=== PATIENT | male | born 1985 | race Caucasian/White ===

== ENCOUNTER 2024-11-30 09:21 | Outpatient (AMB) | payer OTHER, SELFPAY ==
--- NOTE | 2024-11-30 09:31 | A.OFFPC_ITS ---
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 Regular visit Intake Note: patient here for new patient visit [employer] Laboratory Director Required: No Allergies No Known Allergies Allergy (Verified 11/30/24 10:17) Medication List - Last Reconciled 11/30/24 by Jairon Díaz CNP No Known Home Meds Tobacco use date assessed: 11/30/24 Dental Screening Dental Screen Date: 11/30/24 Did you have a dental visit in the last 12 months?: Yes Did you have a dental problem in the last 6 months where you did not have access to dental care?: No Was dental information given to patient?: Patient has dentist HPI HPI Comments History of Present Illness Details 31-year-old male presents to establish c are. Prior PCP? - [facility] Last office visit/CPE/labs - 5-7 years ago Acute issue(s) - Persistent nasal congestion with produ ctive green and black phlegm for the past 2 years. Denies constitutional symptoms. Flonase was effective but he developed adverse reaction of nausea Past Medical History - Depression: stopped taking psychotropi c medications at 19 years old - Left inguinal hernia - Pilonidal cyst Surgical History - Tooth extraction - Left inguinal hernia repair - Benign cyst removal from left christian a nd right forearm Family History - MGF: Diabetes, dementia - MGM: Alcohol abuse Social History - Smokes 3-4 cigarettes daily/1 pack wee kljael, have been smoking for 25 years; 0.5 ppd maximum. Does not vape. Drinks 1-2 small glass whiskey on weekends. Smokes less than a gram of cannabis daily - Has been making healthy dietary choice s. Exercises routinely. Generally sleep well Health maintenance - Last eye exam was several years ago. Referred to Ophthalmology for routine eye exam - Last dental visit was was in 10/2024 - Last tetanus vaccine was more than 10 years ago; received Tdap vaccine today - Has not been vaccinated for the flu ; declines vaccination [facility] Medical History (Updated 11/30/24 @ 10:47 by Mohamed Bre, NUCLEAR POWER REACTOR OPERATOR) Hernia of testicle Depression Surgical History (Updated 11/30/24 @ 09:55 by Vi Castrejon) History of tooth extraction History of removal of cyst Family History (Updated 11/30/24 @ 09:46 by Vi Castrejon) Maternal Grandfather Diabetes Brother Testicular cancer Maternal Grandmother Alcohol abuse FH: mental illness Maternal Uncle Alcohol abuse Social History (Updated 11/30/24 @ 09:35 by Vi Castrejon) Housing: Apartment Patient Tobacco Use Status: Current everyday Tobacco user Cigarette Packs Per Day: 0 Cigarettes Per Day: 4 e-Cigarette/Vaping Use: Never Used Second Hand Smoke Exposure: No Substance Use Type: Marijuana service: No Current occupational status: employed 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 1. Little interest or pleasure in doing things: not at all 2. Feeling down, depressed, or hopeless: not at all 3. Trouble falling or staying asleep, or sleeping too much: several days 4. Feeling tired or having little energy: several days 5. Poor appetite or overeating: not at all 6. Feeling bad about yourself - or that you are a failure or have let yourself or your family down: not at all 7. Trouble concentrating on things, such as reading the newspaper or watching television: not at all 8. Moving or speaking so slowly that other people could have noticed. Or the opposite - being so fidgety or restless that you have been moving around a lot more than usual: not at all 9. Thoughts that you would be better off or of hurting yourself in some way: not at all Total score: 2 Depression Screening Interpretation: Negative Depression Screening Done: Yes 64515 - PHQ-9 Billing: Yes Source: Developed by Drs. Fernando David, Lisandra Bejarano, Marlon Foster and colleagues, with an educational pravin from [employer]. Thrive Questionnaire Date Thrive assessed: 11/30/24 I am a: Patient What is your living situation today?: I have a steady place to live Within the past 12 months, did the food you bought not last and you didn't have the money to get more?: Never true Within the past 12 months, did you worry whether your food would run out before you got money to buy more?: Never true Do you have trouble paying for medicines?: No Do you have trouble getting transportation to medical appointments?: No Do you have trouble paying your heating and electricity bill?: No Do you have trouble taking care of your child, family member or friend?: No Do you have trouble with day-to-day activities such as bathing, preparing meals, shopping, managing finances, etc.?: No Are you currently unemployed and looking for a job?: No Are you interested in more education?: No Please select the resources that you would like help with: None Currently or been in a relationship where the following occur: No concerns reported THRIVE Score: 0 AUDIT C Alcohol Use Questionnaire (AUDIT-C) 1. How often do you have a drink containing alcohol?: 2-4 times a month 2. How many drinks containing alcohol do you have on a typical day when you are drinking?: 1 or 2 3. How often do you have six or more drinks on one occasion?: Never Total Score: 2 Score Reviewed/Action Taken: Yes JOSE DANIEL-7 AMB Questionnaire JOSE DANIEL-7 Date JOSE DANIEL - 7 assessed: 11/30/24 Feeling nervous, anxious, or on edge: 1 = Several days Not being able to stop or control worryin = Several days Worrying too much about different things: 2 = More than half the days Trouble relaxin = Not at all Being so restless that it is hard to sit still: 1 = Several days Becoming easily annoyed or irritable: 2 = More than half the days Feeling afraid as if something awful might happen: 0 = Not at all Total JOSE DANIEL-7 score (0-4 normal; 5-9 mild; 10-14 moderate; 15-21 severe): 7 Source: Developed by Drs. Fernando David, Lisandra Bejarano, Marlon Foster and colleagues, with an educational pravin from [employer]. JOSE DANIEL-7 Assessment Billing JOSE DANIEL-7 Assessment Tool: JOSE DANIEL-7 Assessment 94420 Review of Systems Const Details: Denies chills, Denies fatigue, Denies fever(s), Denies headache(s) and Denies weakness HEENT Denies change in vision, Denies dizziness, Denies headache(s), Denies hearing loss, Denies nasal congestion, Denies sinus pain, Denies sinus pressure and Denies sore throat Card Denies chest pain, Denies lightheadedness, Denies dyspnea and Denies other (palpitations) Resp Reports cough, Denies dyspnea and Denies wheezing GI Denies abdominal pain, Denies melena, Denies hematochezia, Denies change in bowel habits, Denies dyspepsia and Denies nausea Denies hematuria and Denies dysuria Musc Denies abnormal gait, Denies myalgias, Denies arthralgias, Denies numbness and Denies tingling Skin/Breast Denies rash, Denies unusual bruising and Denies wounds Neuro Denies abnormal gait, Denies dizziness, Denies headache(s), Denies memory loss, Denies numbness, Denies Sensory deficit (Neuro), Denies tingling and Denies weakness Psych Denies anxiety, Denies depression and Denies memory loss Endo Denies cold intolerance, Denies fatigue, Denies heat intolerance, Denies polydipsia and Denies polyuria Ruperto/Lymph Denies easy bleeding and Denies easy bruising Aller/Immun Denies wheezing Physical exam (Primary Care) Vital Signs: Last Vital Signs Temp 97.6 F 11/30/24 09:46 Pulse 87 11/30/24 09:46 Resp 16 11/30/24 09:46 BP 115/61 11/30/24 09:46 Pulse Ox 99 11/30/24 09:46 Oxygen Delivery Method Room Air 11/30/24 09:46 BMI result Body Mass Index 24.7 Tobacco/Smoking Status: Tobacco use Status Tobacco use date assessed 11/30/24 11/30/24 09:46 Patient Tobacco Use Status Current everyday Tobacco 11/30/24 09:46 e-Cigarette/Vaping Use Never Used 11/30/24 09:46 PHQ-9: PHQ-9 Score PHQ-9: Total score 2 11/30/24 10:48 Depression Screening Interpretation: Negative Thrive Assessment: Date of Thrive Assessment Date Thrive assessed 11/30/24 11/30/24 09:35 Currently or been in a relationship where the following occur: No concerns reported Const Other: General: no acute distress, well developed, alert and awake Nutritional Appearance: well nourished Orientation/consciousness: patient oriented x3 HENMT Head: Yes normocephalic and Yes atraumatic Ears: hearing grossly normal bilaterally and TM's normal bilaterally General nose exam: Normal external nose present and Normal nares present Mouth: Normal oral and palatal mucosa present and moist mucous membranes Teeth and gingiva: dentition normal Throat: Yes oropharynx normal Eyes Pupils: Equal, round and reactive pupils present and Pupil accommodation reflex normal EOM: EOMs intact bilaterally Neck Neck: Yes normal visual inspection, Yes no lymphadenopathy and Yes trachea midline Thyroid: Thyroid normal Carotids: no bruits Lymphatic: no lymphadenopathy noted Chest Chest palpation & inspection: normal inspection of the chest Resp Effort & Inspection: normal respiratory effort Auscultation: clear to auscultation bilaterally Cardio Rate: regular rate Rhythm: regular rhythm Heart sounds: S1 normal heart sound present, S2 normal heart sound present, no gallops, no murmurs and no rubs Bruits: no abdominal aortic bruits and no carotid bruits GI Palpation (GI): No Abdominal aortic bruit present, Soft to palpation, nontender, No hepatosplenomegaly present and No Rebound tenderness present Auscultation: normal bowel sounds General: Yes no CVA tenderness Back/Spine/Pelvis Back: no CVA tenderness Cervical Spine: cervical ROM normal and No Cervical spine tenderness Thoracic/Lumbar Spine: thoraco-lumbar ROM normal, No pain with thoraco-lumbar ROM, No thoracic spinal tenderness and No lumbar spinal tenderness Skin General: warm and dry. Normal skin color. Normal skin turgor Lesions: no lesions Rashes: no rashes Trauma: no lacerations or abrasions Wounds: no wounds Nails: normal Neuro General: patient oriented x3, gait normal and CN's II-XI intact bilaterally Cranial nerves: Yes Equal, round and reactive pupils present Cognition (Neuro): normal cognition Gait exam (Neuro): Normal gait present Motor exam (neuro): 5/5 motor strength present throughout Sensory Exam: No Sensory deficit (Neuro) Deep tendon reflexes (DTR's): Right patellar reflex intensity grade: 2+ and Left patellar reflex intensity grade: 2+ Extrem General: Yes normal to inspection, No edema and No calf tenderness Psych Appearance: grossly normal Affect: normal affect Attitude: cooperative Thought process: Normal thought process present Immunizations Boostrix Tdap 2.5 Lf unit-8 mcg-5 Lf/0.5 mL intramuscular syringe Performing Provider: Jairon Díaz CNP Performing Location: [facility] [place] [facility] Administered by: Nathaniel Morrow RN on 11/30/24 11:02 Dose Route Admin Location Dispensed Lot Number Expiration Date [facility] Placement Interviewer 0.5 mL IM Left Deltoid 0.5 mL [id number] 01/21/27 [id number] [employer] VIS Given Date VIS Provided VIS Publication Date 11/30/24 Single Vaccine 21 Eligibility Eligibility Date Funding Source Not [facility] Eligible 11/30/24 Private Coding Level of Care Code New Pt Level 3 (80218) New Pt Prev Care 18-39yr(34578 Diagnoses Normal physical examination, routine Z00.00 Eye exam, routine Z01.00 Allergies T78.40XA Smoking 1/2 pack a day or less F17.210 Depression F32.A Laboratory tests ordered as part of a complete physical exam (CPE) Z00.00 Additional Codes JOSE DANIEL-7 Assessment Billing - JOSE DANIEL-7 Assessment Tool: JOSE DANIEL-7 Assessment 10479 ([id number]) PHQ-9 - 85323 - PHQ-9 Billing: Yes ([id number]) Assessment & Plan Assessment & Plan (1) Normal physical examination, routine: Code(s): Z00.00 - Encounter for general adult medical examination without abnormal findings Category: Medical Plan: No significant functional limitation noted. Advised to perform lab work and follow-up for telehealth visit in 2-3 weeks for labs review. All return sooner with symptoms or concerns. Verbalized understanding and agreed with treatment plan. (2) Eye exam, routine: Code(s): Z01.00 - Encounter for examination of eyes and vision without abnormal findings Category: Medical Plan: Last eye exam was several years ago. Referred to Ophthalmology for routine eye exam. (3) Allergies: Code(s): T78.40XA - Allergy, unspecified, initial encounter Category: Medical Plan: Persistent nasal congestion with productive green and black phlegm for the past 2 years. No constitutional symptoms. Flonase was effective but he developed adverse reaction of nausea. May use nasal saline spray as needed. May take an antihistamine such as Claritin or Zyrtec once daily. Smoking cessation encouraged. Follow-up with worsening or new symptoms. Verbalized understanding and agreed with treatment plan. (4) Smoking 1/2 pack a day or less: Code(s): F17.210 - Nicotine dependence, cigarettes, uncomplicated Category: Social Hx Plan: He smokes 3-4 cigarettes daily/1 pack weekly, have been smoking for 25 years; 0.5 ppd maximum. Instructed on the health risks and complications of smoking and encouraged smoking cessation. Declines medication treatment for smoking cessation at this time and notes that he will stop smoking without medication. Follow-up as needed. Verbalized understanding and agreed with treatment plan. (5) Depression: Code(s): F32.A - Depression, unspecified Category: Medical Plan: He notes that his symptoms have been well-controlled since he was 19 years old and therefore has not taking psychotropic medications since. Routine exercise encouraged. Follow-up with symptoms or concerns. Verbalized understanding and agreed with the plan. (6) Laboratory tests ordered as part of a complete physical exam (CPE): Code(s): Z00.00 - Encounter for general adult medical examination without abnormal findi ngs Category: Medical Plan: Fasting labs ordered as part of a complete physical exam. Advised to fast for at least 10 hours before getting labs drawn. May drink water Verbalized understanding and agreed with treatment plan. Orders: Orders Comprehensive [place]. Panel Fast Today Z00.00 - Encounter for general adult medical examination without abnormal findings UA CC w/rflx Micro + Cult Today Z00.00 - Encounter for general adult medical examination without abnormal findings Vitamin D 25-OH Total Today Z00.00 - Encounter for general adult medical examination without abnormal findings TDaP Immunization Today Z23 - Encounter for immunization Complete Blood Count Auto Diff Today Z00.00 - Encounter for general adult medical examination without abnormal findings Lipid Panel Today Z00.00 - Encounter for general adult medical examination without abnormal findings Microalbumin, Random (w Creat) Today Z00.00 - Encounter for general adult medical examination without abnormal findings TSH reflex Free T4 Today Z00.00 - Encounter for general adult medical examination without abnormal findings
[2024-11-30 09:46] VITALS: BP 115/61; PULSE 87; RESP 16; TEMP 36.4; O2SAT 99; BMI 24.7
--- OUTSIDE RECORDS SUMMARY | 2024-11-30 10:33 | XMS_ITS ---
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 MEDICATIONS Medication SIG (Take, Route, Frequency, Duration) Notes Start Date End Date Status Fluticasone Propionate 93 MCG/ACT 1 spray in each nostril Nasally Twice a day for 30 days 12/01/2023 Active Multi Vitamin - 1 tablet Orally Once a day Active Vitamin B Complex - as directed Orally Active Flax Seed Oil Active Advil 200 MG 1 tablet with food o r milk as needed Orally Three times a day Active Turmeric Active SOCIAL HISTORY Tobacco Use: Social History Observation Description Date Details (start date - stop date) Current Smoker NA - NA Sex Assigned At : Social History Observation Description Sex Assigned At Unknown Tobacco Use/Smoking Question Answer Notes Tobacco use: current smoker How often do you smoke cigarettes? every day Are you interested in quitting? Not ready to matt t Section Notes: Living in [place], [place] wi th his girlfriend Chapis and a cat. 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[employer]) PROBLEMS Problem Type ICD Code Onset Dates Problem Status W/U Status Risk SNOMED Code Notes Problem Pilonidal cyst (L05.91) Active confirmed Pilonidal cyst (47329304) VITAL SIGNS Blood pressure systolic 118 mm Hg 12/01/19 24 Blood pressure diastolic 72 mm Hg 024 Heart Rate 99 /min 12/01/2023 Height 67 in 12/01/2023 Weight 159.6 lbs 12/01/2023 BMI 24.99 kg/m2 12/01/2023 Oximetry 97 % 12/01/2023 Height-cm 170.18 cm 12/01/2023 Weight-kg 72.39 kg 12/01/2023 Encounters Encounter Location Date Provider Diagnosis [address] [place] [id number] 12/01/2023 SANIYA GARCIA Prediabetes R73.03 ; Pilonidal cyst L05.91 and Seasonal allergies J30.2 ASSESSMENTS Encounter Date Diagnosis Assessment Notes Treatment Notes Treatment Clinical Notes Section Notes 12/01/2023 Prediabetes (ICD-10 - R73.03) Pt admits to high sugar HS diet/snacking along with bread and pasta Discussed low carb/complex carb diet maintain hydration and limit ibuprofen as creat 0.9 Will continue to monitor 12/01/2023 Pilonidal cyst (ICD-10 - L05.91) Currently no infection If recurrent may need to refer back to surgeon as has firm, scar tissue gluteal cleft and upper buttocks. continue with cleaning well with antibacterial soaps, warm soaks Also suggested low sugar Metamucil daily to make stools less loose 12/01/2023 Seasonal allergies (ICD-10 - J30.2) Will trial flonase as feels mostly nasal congestion is his discomfort Neti pot/nasal rinses Continue to monitor 12/01/2023 Other Total time spen t with patient 32 minutes which includes face to face visit, education and coordination of care. PLAN OF TREATMENT Medication Medication Name Sig Start Date Stop Date Notes Montelukast Sodium 10 MG 1 tablet Orally Once a day 2023 Fluticasone Propionate 93 MCG/ACT 1 spray in each nostril Nasally Twice a day for 30 days 12/01/2023 Senna 8.6 MG 2 tablets at bedtime as needed Orally Once a day Treatment Notes Assessment Notes Prediabetes Pt admits to high sugar HS diet/snacking along with bread and pasta Discussed low carb/complex carb diet maintain hydration and limit ibuprofen as creat 0.9 Will continue to monitor Pilonidal cyst Currently no infection If recurrent may need to refer back to surgeon as has firm, scar tissue gluteal cleft and upper buttocks. continue with cleaning well with antibacterial soaps, warm soaks Also suggested low sugar Metamucil daily to make stools less loose Seasonal allergies Will trial flonase as feels mostly nasal congestion is his discomfort Neti pot/nasal rinses Continue to monitor Other Total time spent wit h patient 32 minutes which includes face to face visit, education and coordination of care. 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 Providers/Specialists: Dentist: Dr. Britton. ?Visit info:? Patient presents in the office today for a new patient lab review. Patient did not start taking the Montelukast due to reading the paperwork that came with it. A little concerned about the side effects. Patient did take the Senna, however, made it so the patient was going 4-5 times a day. Runny and messy stool. Believes he has another pilonidal cyst. Popped over the weekend. ?-Concerned over re-current pilonidal cysts and loose BMs ?-Recent one popped after moist heat, soaks; no longer draining purulent discharge; no longer really painful. * ROS:?all systems reviewed and are non-contributory unless specified in the HPI. * Medical History:?? * Surgical History:??Cyst Kulwinder swati from [place], arm, lower back - benign 2007/2009/2013Hernia Surgery 2007[place] Teeth Removal 2011 * Hospitalization/Major Diagno stic Procedure:?? * Family History:??Father: mervin nuñez, No health concerns.??Mother: alive, No health concerns.??Paternal Grandfather: alive, Unknown.??Paternal Grandmother: , Unknown.??Maternal Grandfather: alive, Unknown.??Maternal Grandmother: 74 yrs, Diabetes.??Brother: alive, alcoholism, colon polyp.??Sister: alive, No health concerns.??Daughter: No health concerns.??Brother #2: alive, No health concerns.?? * Social History:?Tobacco Use:??Tobacco Use/Smoking??Tobacco use:??current smoker,??How often do you smoke cigarettes???every day,??Are you interested in quitting???Not ready to quit.?Drugs/Alcohol:??Do you smoke marijuana?: Admits, smokes, daily. Do you drink alcohol?: Yes, rarely, beer, liquor. ?Living in [place], [place] with his girlfriend Chapis and a cat. 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 * Medications:??TakingAdvil 20 0 MG Tablet 1 tablet with food or milk as needed Orally Three times a day Flax Seed Oil Turmeric Vitamin B Complex - Tablet as directed Orally Multi Vitamin - Tablet 1 tablet Orally Once a day Taking Advil 200 MG Tablet 1 tablet with food or milk as needed Orally Three times a day Taking Flax Seed Oil Taking Turmeric Taking Vitamin B Complex - Tablet as directed Orally Taking Multi Vitamin - Tablet 1 tablet Orally Once a day Not-TakingSenna 8.6 MG Tablet 2 tablets at bedtime as needed Orally Once a day Montelukast Sodium 10 MG Tablet 1 tablet Orally Once a day take at bedtimeMedication List reviewed and reconciled with the patientNot-Taking Senna 8.6 MG Tablet 2 tablets at bedtime as needed Orally Once a day Not-Taking Montelukast Sodium 10 MG Tablet 1 tablet Orally Once a day take at bedtimeMedication List reviewed and reconciled with the patient * Allergies:??Seasonal: Cold l tatiana symptoms - Allergy Objective: * Vitals:??BP:118/72mm Hg, HR: 99/min, Oxygen sat %:97%, Wt:159.6lbs, Wt-k.39 kg, Ht: 67 in, Ht-cm: 170.18 cm, BMI:24.99Index, Body Surface Area: 1.85. * ?Past Orders: ?Lab:1,25OH VITAMIN D ( Order Date - 10/28/2023) (Collection Date & Time - 11/07/2023 10:48 AM) ? Value Reference Range ?1,25OH VITAMIN D 52.2 - ?Lab:ANTITHYROGLOBULIN AB (Order Date - 10/28/2023) (Collection Date & Time - 11/07/2023 10:48 AM) ? Value Reference Range ?ANTITHYROGLOBULIN AB 12.6 (<115) - IU/ML ?Lab:APOLIPOPROTEIN A1 (Order Date - 10/28/2023) (Collection Date & Time - 11/07/2023 10:48 AM) ? Value Reference Range ?APOLIPOPROTEIN A1 133 - MG/DL ?Lab:APOLIPOPROTEIN B ( Order Date - 10/28/2023) (Collection Date & Time - 11/07/2023 10:48 AM) ? Value Reference Range ?APOLIPOPROTEIN B 81 - MG/DL ?Lab:CBC (COMPLETE BLOO D COUNT) WITH DIFF (Order Date - 10/28/2023) (Collection Date & Time - 11/07/2023 10:48 AM) ? Value Reference Range ?Imm Gran 0.3 - % ?Abs. Imm Gran 0.0 - K/MM3 ?NEUT 57.7 (44-76) - % ?LYMPH 26.5 (15-43 ) - % ?MONOCYTE 8.0 (4. 5-10.5) - % ?EO 6.2 H (0-6) - % ?LYMPH # 1.9 (0.8 -3.1) - K/MM3 ?BASO 1.3 (0-2) - % ?MONO# 0.6 (0.4-1 .3) - K/MM3 ?NEUT # 4.1 (1.3- 7.0) - K/MM3 ?EO # 0.4 (0.0-0. 4) - K/MM3 ?BASO # 0.1 (0.0- 0.1) - K/MM3 ?WBC 7.1 (4.0-11. 0) - K/MM3 ?RBC 4.80 (4.70-6. 10) - M/MM3 ?HGB 14.8 (13.7-17 .1) - GM/DL ?HCT 42.9 (40.5-50 .0) - % ?MCV 89.4 (80.0-94 .0) - FL ?MCH 30.8 (27.0-34 .0) - PG ?MCHC 34.5 (33.0-3 7.0) - g/dL ?PLT 241 (150-460 ) - K/MM3 ?RDW-SD 40.4 (<47. 0) - FL ?MPV 10.0 (9.4-12. 4) - FL ?AUTOMATED NRBC 0.0 - #/100 WBC'S ?ABS. NRBC 0.0 - K/MM3 ?Lab:COMPREHENSIVE META BOLIC PANEL (Order Date - 10/28/2023) (Collection Date & Time - 11/07/2023 10:48 AM) ? Value Reference Range ?AG RATIO 1.9 - ?GLUCOSE 107 H (70- 99) - MG/DL ?BUN 14 (6-20) - MG/DL ?CREATININE 0.9 ( 0.7-1.2) - MG/DL ?SODIUM 140 (133- 145) - MMOL/L ?POTASSIUM 4.2 (3 .6-5.2) - MMOL/L ?CHLORIDE 106 (98 -107) - MMOL/L ?BICARBONATE 26 (22-29) - MMOL/L ?ANION GAP 8 (4 -17) - ?ALBUMIN 4.7 (3.4 -4.8) - GM/DL ?CALCIUM 9.7 (8.6 -10.5) - MG/DL ?BILIRUBIN,TOTAL 0.6 (0-1.2) - MG/DL ?TOTAL PROTEIN 7.2 (6.2-8.2) - GM/DL ?AST 20 (0-40) - U/L ?ALK PHOS 73 (40 -129) - U/L ?ALT 20 (0-41) - U/L ?ESTIMATED GFR CREATININE 114 - ML/MIN/1.73 M2 ?Lab:CRP, HIGH SENSITIV ITY (Order Date - 10/28/2023) (Collection Date & Time - 11/07/2023 10:48 AM) ? Value Reference Range ?CARDIO CRP 1.12 ( 0-3) - MG/L ?Lab:FERRITIN (Order Da te - 10/28/2023) (Collection Date & Time - 11/07/2023 10:48 AM) ? Value Reference Range ?Fentanyl Comments 177 (16-294) - NG/ML ?Lab:HEMOGLOBIN A1C (Or edi Date - 10/28/2023) (Collection Date & Time - 11/07/2023 10:48 AM) ? Value Reference Range ?HEMOGLOBIN A1C 5.6 (4.0-5.6) - % ?Lab:HOMOCYSTEINE, PLAS MA (Order Date - 10/28/2023) (Collection Date & Time - 11/07/2023 10:48 AM) ? Value Reference Range ?HOMOCYSTEINE, PLASMA 7.6 (0-15) - UMOL/L ?Lab:INSULIN (Order Donn e - 10/28/2023) (Collection Date & Time - 11/07/2023 10:48 AM) ? Value Reference Range ?INSULIN 5.4 (2.6 -24.9) - uU/mL ?Lab:IRON AND TIBC (Ord er - 10/28/2023) (Collection Date & Time - 11/07/2023 10:48 AM) ? Value Reference Range ?EST T. IRON BIND CAPACITY 315 (155-530) - MCG/DL ?% IRON SATURATION 40 (20-55) - % ?IRON 126 (45-160 ) - MCG/DL ?UNSATURATED IRON BINDING CAPAC 189 (110-370) - MCG/DL ?Lab:LIPID PANEL (Order Date - 10/28/2023) (Collection Date & Time - 11/07/2023 10:48 AM) ? Value Reference Range ?CHOLESTEROL, TOTAL 170 (<200) - MG/DL ?TRIGLYCERIDE 135 (<150) - MG/DL ?HDL CHOL 48 (>3 9) - MG/DL ?LDL CHOLESTEROL, CALCULATED 95 (0-130) - MG/DL ?NON HDL CHOLESTEROL (CALC) 122 (<160) - MG/DL ?Lab:MAGNESIUM (Order D ate 10/28/2023) (Collection Date & Time - 11/07/2023 10:48 AM) ? Value Reference Range ?MAGNESIUM 1.9 (1 .6-2.3) - mg/dL ?Lab:METHYLMALONIC ACID , SERUM (Order Date - 10/28/2023) (Collection Date & Time - 11/07/2023 10:48 AM) ? Value Reference Range ?METHYLMALONIC ACID, SERUM 118 - ?Lab:SEDIMENTATION RATE (Order Date - 10/28/2023) (Collection Date & Time - 11/07/2023 10:48 AM) ? Value Reference Range ?SEDIMENTATIO N RATE,AUTOMATED 8 (0-15) - MM/HR ?Lab:TESTOSTERONE, TOTA L AND FREE (EST.), MALES >15 YRS (Order Date - 10/28/2023) (Collection Date & Time - 11/07/2023 10:48 AM) ? Value Reference Range ?FREE TESTOST ERONE, ESTIMATED 10.54 (3.7-14.7) - NG/DL ?TESTOSTERONE 508 (280-800) - NG/DL ?SHBG 29.0 (17-56) - NMOL/L ?Lab:THYROID PANEL (Ord er Date - 10/28/2023) (Collection Date & Time - 11/07/2023 10:48 AM) ? Value Reference Range ?FREE T4 1.22 (0.7 0-1.80) - NG/DL ?TSH 1.39 (0.4-4.2 ) - uIU/mL ?Lab:THYROID PEROXIDASE (ANTIMICROSOMAL) ANTIBODIES (Order Date - 10/28/2023) (Collection Date & Time - 11/07/2023 10:48 AM) ? Value Reference Range ?ANTI THYROID PEROXIDASE AB 9.0 (<34) - IU/ML ?Lab:URIC ACID (Order D ate - 10/28/2023) (Collection Date & Time - 11/07/2023 10:48 AM) ? Value Reference Range ?URIC ACID 4.2 (2 .6-8.7) - MG/DL * Examination: ?General Examination: ?GEN: NAD, speaking in full complete sentences, thoughts clear and appropriate ?RESP: nonlabored breathing, lungs clear/equal all elliott ?CV: S1S2 regular ?NEURO: AO x 3 ?PSYCH: judgment/insight intact, NL mood/affect ?SKIN: No erythema around gluteal cleft, some mild pain with palpation; no drainage/sign of acute infection. Assessment: * Assessment: 1.??Prediabetes - R73.03 (Pr imary)??2.??Pilonidal cyst - L05.91??3.??Seasonal allergies - J30.2?? Plan: * Treatment: 2.??Pilonidal cyst?? Notes: Currently no infection If recurrent may need to refer back to surgeon as has firm, scar tissue gluteal cleft and upper buttocks. continue with cleaning well with antibacterial soaps, warm soaks Also suggested low sugar Metamucil daily to make stools less loose? 3.??Seasonal allergies?? Start Fluticasone Propionate Exhaler Suspension, 93 MCG/ACT, 1 spray in each nostril, Nasally, Twice a day, 30 days, 1, Refills 3.? Notes: Will trial flonase as feels mostly nasal congestion is his discomfort Neti pot/nasal rinses Continue to monitor? 4.??Others?? Notes: Total time spent with patient 32 minutes which includes face to face visit, education and coordination of care.? * Procedure Codes:?? * Preventive Medicine:?Last CPE: 2019 Colonoscopy: No Endoscopy: No COVID Vac: Yes FLU Vac: No. * Follow Up:??3 Months (Reason : CPE re eval low carb/sugar diet) * Billing Information: * Visit Code:?? 15880 Office Visit, Est Pt., Level 4. * Procedure Codes:?? * Sign off status: Completed true * Provider:??SANIYA GARCIA NP Date:?? History and Physical Notes * HPI (History of Present Illness) Category Sub-Category Detail Notes Category Not es Patient Care Team Providers/ Specialists: Dentist: Dr. Britton Visit info Patient presents in the office today for a new patient lab review. Patient did not start taking the Montelukast due to reading the paperwork that came with it. A little concerned about the side effects. Patient did take the Senna, however, made it so the patient was going 4-5 times a day. Runny and messy stool. Believes he has another pilonidal cyst. Popped over the weekend. -Concerned over re-current pilonidal cysts and loose BMs -Recent one popped after moist heat, soaks; no longer draining purulent discharge; no longer really painful Examination Category Sub-Category Detail Notes Category Not es General Examination GEN: NAD, speaking in full complete sentences, thoughts clear and appropriate RESP: nonlabored breathing, lungs clear/equal all elliott CV: S1S2 regular NEURO: AO x 3 PSYCH: judgment/insight intact, NL mood/affect SKIN: No erythema around gluteal cleft, some mild pain with palpation; no drainage/sign of acute infection
--- OUTSIDE RECORDS SUMMARY | 2024-11-30 10:34 | XMS_ITS ---
Author Organization [facility] Address [address] [place], [place] [phone] Care Team Providers Care Commissioning Engineer Name Role Phone KVNG PUGA Primary Care Provider [phone] [facility] SANIYA GARCIA [phone] REASON FOR VISIT CPE Encounters Encounter Location Date Provider Diagnosis [facility], [address] [id number] 03/03/2024 SANIYA GARCIA PLAN OF TREATMENT No Information Progress Notes * BILL HENRIQUEZDOB:1985 (39 yo M)Acc No.[id number]:03/03/2024 Progress Note Patient:??BILL HENRIQUEZ Provider:??SANIYA GARCIA NP :1985?Age:38 Y?Sex:Ma le Date:03/03/2024 Phone: Address: [address] [facility], [id number] Pcp:KVNG PUGA Subjective: * Chief Complaints: * ?1. CPE. * Medical History:?? Objective: Assessment: Plan: * Treatment: Care Plan: * Problems:?? * Billing Information: * Visit Code:?? * Procedure Codes:?? * Sign off status: Pending * Provider:??SANIYA GARCIA NP Date:??
== END 2024-11-30 10:55 | disposition home or self-care (01) ==
PROVIDERS: PCP Nurse Practitioner Family; Visit Provider Nurse Practitioner Family
DX: Z00.00 Encounter for general adult medical examination without abnormal findings (principal); T78.40XA Allergy, unspecified, initial encounter; F17.210 Nicotine dependence, cigarettes, uncomplicated; F32.A Depression, unspecified; Z23 Encounter for immunization

== ENCOUNTER → 2024-11-30 09:21 | Outpatient (BNVA) | payer OTHER, SELFPAY | PROVIDERS: PCP Nurse Practitioner Family; Visit Provider Nurse Practitioner Family | DX: Z00.00 Encounter for general adult medical examination without abnormal findings (principal); Z23 Encounter for immunization; T78.40XA Allergy, unspecified, initial encounter; F32.A Depression, unspecified; F17.210 Nicotine dependence, cigarettes, uncomplicated | CPT/HCPCS: 90471; 90715; 96127 ==

== ENCOUNTER 2024-12-08 10:14 | Outpatient (REF) | payer OTHER, SELFPAY ==
[2024-12-08 12:00] LABS: MANUAL DIFF FLAG NO
[2024-12-08 12:04] LABS: Basophils Absolute Auto 0.1 X10*3/uL (0.0-0.2); Basophils Percent Auto 1.4 % (0-2); Eosinophils Absolute Auto 0.5 X10*3/uL (0.0-0.4); Eosinophils Percent Auto 8.3 % (0-4); Hematocrit 41.2 % (42.0-52.0); Hemoglobin 14.2 g/dl (14.0-18.0); Imm Gran Abs Auto 0.01 X10*3/uL (0.00-0.03); Imm Gran Pct Auto 0.2 % (0.0-0.4); Lymphocytes Absolute Auto 1.8 X10*3/uL (1.2-4.9); Lymphocytes Percent Auto 27.6 % (20-40); Mean Corpuscular HGB Conc 34.5 g/dl (31.0-36.0); Mean Corpuscular Hemoglobin 30.3 pg (27.0-33.0); Mean Platelet Volume 9.7 fL (9.4-12.4); Monocytes Absolute Auto 0.5 X10*3/uL (0.1-1.2); Monocytes Percent Auto 7.5 % (2-11); Neutrophils Absolute Auto 3.5 x10*3/uL (2.0-8.3); Platelet Count 224 X10*3/uL (160-400); Red Blood Count 4.68 X10*6/uL (4.60-5.80); Red Cell Distribution Width 12.3 % (11.0-16.0); White Blood Count 6.4 X10*3/uL (4.8-10.8)
--- OUTSIDE RECORDS SUMMARY | 2024-12-08 12:07 | XMS_ITS ---
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 [email or web address] PROBLEMS Problem Type ICD Code Onset Dates Problem Status W/U Status Risk SNOMED Code Notes Problem Pilonidal cyst (L05.91) Active confirmed Pilonidal cyst (95994211) VITAL SIGNS Blood pressure systolic 118 mm Hg 12/01/19 24 Blood pressure diastolic 72 mm Hg 024 Heart Rate 99 /min 12/01/2023 Height 67 in 12/01/2023 Weight 159.6 lbs 12/01/2023 BMI 24.99 kg/m2 12/01/2023 Oximetry 97 % 12/01/2023 Height-cm 170.18 cm 12/01/2023 Weight-kg 72.39 kg 12/01/2023 Encounters Encounter Location Date Provider Diagnosis [address] [place] [id number] 12/01/2023 SANIYA GARCIA Prediabetes R73.03 ; Pilonidal [...] Notes * BILL HENRIQUEZDOB:1985 (38 yo M)Acc No.[id number]:12/01/2023 Patient:??BILL HENRIQUEZ Provider:??SANIYA GARCIA NP :1985?Age:38 Y?Sex:Ma le Date:12/01/2023 Phone: Address:[address], [place], [place] Pcp:KVNG PUGA Subjective: * Chief Complaints: * ?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 [...] History:?? * Surgical History:??Cyst Kulwinder swati from [place], arm, lower back - benign 2007/2009/2013Hernia Surgery [...] alcohol?: Yes, rarely, beer, liquor. ?Living in [place], [place] with his girlfriend Chapis and a cat. 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 * Medications:??TakingAdvil 20 0 MG Tablet 1 [...] diet) * Billing Information: * Visit Code:?? 34828 Office Visit, Est Pt., Level 4. * [...]
--- OUTSIDE RECORDS SUMMARY | 2024-12-08 12:07 | XMS_ITS | Patient Health Record ---
Author Organization [facility] Address [address] [place] [id number] Care Team Providers Care Scudding Inspector Name Role Phone KVNG PUGA Primary Care Provider [phone] SANIYA GARCIA Unavailable [phone] ALLERGIES Allergen (clinical drug ingredient) Drug/Non Drug Allergy documented on EMR Reaction Allergy Type Onset Date Status Seasonal (uncoded) Cold like symptoms Allergy Active REASON FOR REFERRAL No Information MEDICATIONS Medication SIG (Take, Route, Frequency, Duration) Notes Start Date End Date Status Flax Seed Oil Active Advil 200 MG 1 tablet with food o r milk as needed Orally Three times a day Active Fluticasone Propionate 93 MCG/ACT 1 spray in each nostril Nasally Twice a day for 30 days 12/01/2023 Active Turmeric Active Multi Vitamin - 1 tablet Orally Once a day Active Vitamin B Complex - as directed Orally Active SOCIAL HISTORY Tobacco Use: Social History [...] to matt t Section Notes: Living in [place], [place] wi th his girlfriend Chapis and a cat. 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 confirmed Lipoma (78888927) Problem Seasonal allergies (J30.2) Active confirmed Seasonal allergy (882404054) Problem Pilonidal cyst (L05.91) Active confirmed Pilonidal cyst (19025404) Problem Nicotine dependence with current use (F17.200) Active confirmed Tobacco user (973053128) Encounters Encounter Location Date Provider Diagnosis [address] [id number] 03/03/2024 SANIYA GARCIA [facility] [address] [place], [place] [id number] 12/15/2023 SANIYA GARCIA PLAN OF TREATMENT No Information Insurance Providers Payer Name Payer Address Payer Phone Subscriber Number Group Number Insured Name Patient Relationship to Insured Coverage Start Date Coverage End Date [employer] [place] [address] [address] [place] [address] [id number] BILL HENRIQUEZ Self - patient is the insured MEDICAL (GENERAL) HISTORY Medical History History ICD Code Chicken Pox as a child Fractured right pinky Migraines Eczema Cysts - pilonidal Surgical History Surgery Date(Month/Year) Cyst Removal from [facility], arm, lower leann k - benign 2007/2009/2013 Hernia Surgery 2007 [place] Teeth Removal 2011
--- OUTSIDE RECORDS SUMMARY | 2024-12-08 12:07 | XMS_ITS ---
Author Organization [facility] Address [address] [place], [place] [phone] Care Team Providers Care Floor Scraper Name Role Phone KVNG PUGA Primary Care Provider SANIYA GARCIA Unavailable [phone] REASON FOR VISIT RX Change Encounters Encounter Location Date Provider Diagnosis [facility], [address] [id number] 12/15/2023 SANIYA GARCIA PLAN OF TREATMENT No Information Progress Notes * BILL HENRIQUEZDOB:1985 (38 yo M)Acc No.[id number]:12/15/2023 Patient:??BILL HENRIQUEZ :1985?Age:38 Y?Sex:Ma tyson Phone: Address:[address], [place] , [place] [address] * true * Date:??
--- OUTSIDE RECORDS SUMMARY | 2024-12-08 12:08 | XMS_ITS ---
Author Organization [facility], [facility] Address [address] [place], [place] [phone] Care Team Providers Care Extractor Plant Operator Name Role Phone KVNG PUGA Primary Care Provider [phone] [facility] SANIYA GARCIA [phone] REASON FOR VISIT CPE Encounters Encounter Location Date Provider Diagnosis [facility], [address] [id number] 03/03/2024 SANIYA GARCIA PLAN OF TREATMENT No Information Progress Notes * BILL HENRIQUEZDOB:1985 (39 yo M)Acc No.[id number]:03/03/2024 Progress Note Patient:??BILL HENRIQUEZ Provider:??SANIYA GARCIA NP :1985?Age:38 Y?Sex:Ma le Date:03/03/2024 Phone: Address: [address], [place] Pcp:KVNG PUGA Subjective: * Chief Complaints: * ?1. CPE. * Medical History:?? Objective: Assessment: Plan: * Treatment: Care Plan: * Problems:?? * Billing Information: * Visit Code:?? * Procedure Codes:?? * Sign off status: Pending * Provider:??SANIYA GARCIA NP Date:??
[2024-12-08 12:34] LABS: Alanine Aminotransferase 25 U/L (0-40); Albumin Level 4.5 g/dL (3.5-5.0); Alkaline Phosphatase 60 U/L (39-117); Anion Gap 11 (12-20); Aspartate Amino Transferase 23 U/L (5-37); Bilirubin Total 0.7 mg/dL (0.0-1.0); Blood Urea Nitrogen 15 mg/dL (9-16); Calcium 9.4 mg/dL (8.4-10.2); Carbon Dioxide 26 mmol/L (22-29); Chloride 108 mmol/L (96-108); Cholesterol 159 mg/dL (<200); Estimated Glomerular Filt Rate > 60; Glucose Fasting 95 mg/dL (60-99); HDL Cholesterol 41 mg/dL (>40); LDL Cholesterol Calculated 100 mg/dL (<100); Potassium 4.1 mmol/L (3.3-5.1); Sodium 141 mmol/L (135-145); Total Protein 7.8 g/dL (6.5-8.0); Triglycerides 90 mg/dL (<150)
[2024-12-08 12:45] LABS: TSH reflex Free T4 0.88 uIU/mL (0.32-4.0); Vitamin D 25-OH Total 60.9 ng/mL (>30)
[2024-12-08 18:33] LABS: Appearance Urine Clear; Color Urine Yellow; Glucose Urine UA Negative (Negative); Leukocyte Esterase Urine Negative (Negative); Nitrite Urine Negative (Negative); Urine Blood Negative (Negative); Urine Ketones Trace mg/dL (Negative); Urine Protein Negative (Neg-Trace)
[2024-12-08 19:00] LABS: Microalbum/Creatinine Ratio Ur 4.9 ug/mg cr (<30)
== END 2024-12-08 10:15 | disposition home or self-care (01) ==
LOC: HO.WFDLDS 10:14
PROVIDERS: Visit Provider Nurse Practitioner Family
DX: Z00.00 Encounter for general adult medical examination without abnormal findings (principal); Z13.6 Encounter for screening for cardiovascular disorders
CPT/HCPCS: 36415; 80053; 80061; 81003; 82043; 82306; 82570; 84443; 85025

== ENCOUNTER → 2024-12-15 12:48 | Outpatient (BNVA) | payer OTHER, SELFPAY | PROVIDERS: PCP Nurse Practitioner Family; Visit Provider Nurse Practitioner Family ==

== ENCOUNTER → 2024-12-15 12:48 | Outpatient (AMB) | payer OTHER, SELFPAY ==
--- NOTE | 2024-12-15 08:54 | A.OFFPC_ITS ---
Intake Visit Reasons: Telehealth 2-3 wks labs review Intake Note: patient here for 2-3 follow up telehealth for lab review Warp Drawer Required: No Allergies No Known Allergies Allergy (Verified 12/15/24 12:44) Tobacco use date assessed: 12/15/24 Dental Screening Dental Screen Date: 12/15/24 Did you have a dental visit in the last 12 months?: Yes Did you have a dental problem in the last 6 months where you did not have access to dental care?: Yes Was dental information given to patient?: Patient has dentist HPI HPI Comments History of Present Illness Details 39-year-old male presents for a [place] [facility] visit for review of recent lab results. 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 Acute symptoms at this time. [facility] Medical History (Updated 12/15/24 @ 12:59 by Jairon Díaz CNP) Hernia of testicle Depression Surgical History (Updated 11/30/24 @ 09:55 by Vi Castrejon MA) History of tooth extraction History of removal of cyst Family History (Updated 11/30/24 @ 09:46 by Vi Castrejon MA) Maternal Grandfather Diabetes Brother Testicular cancer Maternal Grandmother Alcohol abuse FH: mental illness Maternal Uncle Alcohol abuse Social History (Updated 11/30/24 @ 09:35 by Vi Castrejon MA) Housing: Apartment Patient Tobacco Use Status: Current everyday Tobacco user Cigarette Packs Per Day: 0 Cigarettes Per Day: 4 e-Cigarette/Vaping Use: Never Used Second Hand Smoke Exposure: No Substance Use Type: Marijuana service: No Current occupational status: employed 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 Current occupational exposures/hazards: Yes Cognitive needs: No Hearing needs: No Vision needs: No Questionnaire Thrive Questionnaire Date Thrive assessed: 11/28/24 I am a: Patient What is your living situation today?: I have a steady place to live Within the past 12 months, did the food you bought not last and you didn't have the money to get more?: Never true Within the past 12 months, did you worry whether your food would run out before you got money to buy more?: Never true Do you have trouble paying for medicines?: No Do you have trouble getting transportation to medical appointments?: No Do you have trouble paying your heating and electricity bill?: No Do you have trouble taking care of your child, family member or friend?: No Do you have trouble with day-to-day activities such as bathing, preparing meals, shopping, managing finances, etc.?: No Are you currently unemployed and looking for a job?: No Are you interested in more education?: No Please select the resources that you would like help with: None Currently or been in a relationship where the following occur: No concerns reported THRIVE Score: 0 JOSE DANIEL-7 AMB Questionnaire JOSE DANIEL-7 Date JOSE DANIEL - 7 assessed: 11/30/24 Source: Developed by Drs. Fernando David, Lisandra Bejarano, Marlon Foster and colleagues, with an educational pravin from [employer]. Review of Systems Const Details: Denies chills, Denies fatigue, Denies fever(s), Denies headache(s) and Denies weakness Cardiac Denies chest pain, Denies claudication, Denies leg edema, Denies lightheadedness, Denies palpitations, Denies dyspnea, Denies dyspnea on exertion, Denies orthopnea and Denies other (Loss of consciousness) Resp Denies cough, Denies excessive phlegm production, Denies dyspnea, Denies dyspnea on exertion, Denies snoring and Denies wheezing Physical exam (Primary Care) Tobacco/Smoking Status: Tobacco use Status Tobacco use date assessed 12/15/24 12/15/24 12:46 Patient Tobacco Use Status Current everyday Tobacco 12/15/24 08:58 e-Cigarette/Vaping Use Never Used 12/15/24 08:58 Thrive Assessment: Date of Thrive Assessment Date Thrive assessed 11/28/24 12/15/24 08:58 Currently or been in a relationship where the following occur: No concerns reported Const Other: Patient is alert and oriented x3. Telehealth Telehealth Telehealth Platform: Telephone Location of provider rendering services: practice address Location of patient: address on file Patient Identification confirmed using: Name, : Yes Telehealth method: voice only Patient verbally consented to treatment: Yes Patient verbally consented to billing insurance company: Yes Patient informed of any privacy concerns related to visit: Yes Coding Level of Care Code Tele Est Pt Level 3 (12370) Diagnoses Elevated LDL cholesterol level E78.00 Screening for lead exposure Z13.88 Time Spent (min) 10 Assessment & Plan Assessment & Plan (1) Elevated LDL cholesterol level: Code(s): E78.00 - Pure hypercholesterolemia, unspecified Category: Medical Plan: Recent lab results reviewed with the patient; unremarkable findings except for slightly elevated LDL, 100. Advised to limit foods high in saturated fat and avoid foods high in trans fat. Routine exercise encouraged. Will recheck lipid panel levels at his next physical exam or sooner with with the symptoms or concerns. Advised to schedule his next physical exam for on/after 11/30/2025. Return sooner with symptoms or concerns. Verbalized understanding and agreed with treatment plan. (2) Screening for lead exposure: Code(s): Z13.88 - Encounter for screening for disorder due to exposure to contaminants Category: Medical Plan: Occupational lead exposure. Let blood work ordered. Will review results and make changes as needed. Verbalized understanding and agreed with treatment plan. Orders: Orders Venous Lead Today Z13.88 - Encounter for screening for disorder due to exposure to contaminants
--- OUTSIDE RECORDS SUMMARY | 2024-12-15 16:07 | XMS_ITS ---
Author Organization [facility], [facility] Address [address] [place] [place], [place] [id number] Care Team Providers Care Stumper Feller Name Role Phone KVNG PUGA Primary Care Provider [phone] [facility] SANIYA GARCIA [phone] REASON FOR VISIT CPE Encounters Encounter Location Date Provider Diagnosis [facility], [address] [phone] 03/03/2024 SANIYA GARCIA PLAN OF TREATMENT No Information Progress Notes * BILL HENRIQUEZDOB:1985 (39 yo M)Acc No.[id number]:03/03/2024 Progress Note Patient:??BILL HENRIQUEZ Provider:??SANIYA GARCIA NP :1985?Age:38 Y?Sex:Ma le Date:03/03/2024 Phone: Address: [address] [id number] Pcp:KVNG PUGA Subjective: * Chief Complaints: * ?1. CPE. * Medical History:?? Objective: Assessment: Plan: * Treatment: Care Plan: * Problems:?? * Billing Information: * Visit Code:?? * Procedure Codes:?? * Sign off status: Pending * Provider:??SANIYA GARCIA NP Date:??
--- OUTSIDE RECORDS SUMMARY | 2024-12-15 16:07 | XMS_ITS ---
Author Organization [facility], [facility] Address [address], [place] [id number] Care Team Providers Care Assistant Director Of Security Name Role Phone KVNG PUGA Primary Care Provider SANIYA GARCIA Unavailable [phone] REASON FOR VISIT RX Change Encounters Encounter Location Date Provider Diagnosis [facility], [address] [phone] 12/15/2023 SANIYA GARCIA PLAN OF TREATMENT No Information Progress Notes * BILL HENRIQUEZDOB:1985 (38 yo M)Acc No.[id number]:12/15/2023 Patient:??BILL HENRIQUEZ :1985?Age:38 Y?Sex:Ma tyson Phone: Address:[address], [place] , [place] [address] * true * Date:??
--- OUTSIDE RECORDS SUMMARY | 2024-12-15 16:07 | XMS_ITS | Patient Health Record ---
Author Organization [facility] Jessica goodwin [facility] Address [address] [place] [id number] Care Team Providers Care Link And Link Knitting Machine Operator Name Role Phone KVNG PUGA Primary Care Provider [phone] SANIYA GARCIA Unavailable [phone] ALLERGIES Allergen (clinical drug ingredient) Drug/Non Drug [...] to matt t Section Notes: Living in [place], [place] wi th his girlfriend Chapis and a cat. 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 confirmed Lipoma (51570772) Problem Seasonal allergies (J30.2) Active confirmed Seasonal allergy (218613360) Problem Pilonidal cyst (L05.91) Active confirmed Pilonidal cyst (75203294) Problem Nicotine dependence with current use (F17.200) Active confirmed Tobacco user (661761811) Encounters Encounter Location Date Provider Diagnosis [address] [id number] 03/03/2024 SANIYA GARCIA PLAN OF TREATMENT No Information Insurance Providers Payer Name Payer Address Payer Phone Subscriber Number Group Number Insured Name Patient Relationship to Insured Coverage Start Date Coverage End Date [employer] MD [address] [address] [place] [phone] [id number] BILL HENRIQUEZ Self - patient is the insured MEDICAL (GENERAL) HISTORY Medical History History ICD Code Chicken Pox as a child Fractured right pinky Migraines Eczema Cysts - pilonidal Surgical History Surgery Date(Month/Year) Cyst Removal from [place], arm, lower leann k - benign 2007/2009/2013 Hernia Surgery 2007 [place] Teeth Removal 2011
--- OUTSIDE RECORDS SUMMARY | 2024-12-15 16:07 | XMS_ITS ---
Author Organization 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 [employer] PROBLEMS Problem Type ICD Code Onset Dates Problem Status W/U Status Risk SNOMED Code Notes Problem Pilonidal cyst (L05.91) Active confirmed Pilonidal cyst (35369629) VITAL SIGNS Blood pressure systolic 118 mm Hg 12/01/19 24 Blood pressure diastolic 72 mm Hg 024 Heart Rate 99 /min 12/01/2023 Height 67 in 12/01/2023 Weight 159.6 lbs 12/01/2023 BMI 24.99 kg/m2 12/01/2023 Oximetry 97 % 12/01/2023 Height-cm 170.18 cm 12/01/2023 Weight-kg 72.39 kg 12/01/2023 Encounters Encounter Location Date Provider Diagnosis [address] [place] [phone] 12/01/2023 SANIYA GARCIA Prediabetes R73.03 ; Pilonidal [...] Notes * BILL HENRIQUEZDOB:1985 (38 yo M)Acc No.[id number]:12/01/2023 Patient:??BILL HENRIQUEZ Provider:??SANIYA GARCIA NP :1985?Age:38 Y?Sex:Ma le Date:12/01/2023 Phone: Address:[address] [place], [place] Pcp:KVNG PUGA Subjective: * Chief Complaints: * ?SIGNAL INTEGRITY 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 [...] History:?? * Surgical History:??Cyst Kulwinder swati from [facility], arm, lower back - benign 2007/2009/2013Hernia Surgery [...] alcohol?: Yes, rarely, beer, liquor. ?Living in [place], [place] with his girlfriend Chapis and a cat. 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 * Medications:??TakingAdvil 20 0 MG Tablet 1 [...] diet) * Billing Information: * Visit Code:?? 41275 Office Visit, Est Pt., Level 4. * [...]
== END ==
LOC: HO.HMCFM 12:48
PROVIDERS: PCP Nurse Practitioner Family; Visit Provider Nurse Practitioner Family
DX: E78.00 Pure hypercholesterolemia, unspecified (principal); Z13.88 Encounter for screening for disorder due to exposure to contaminants